=== PATIENT | female | born 1975 | race Caucasian/White ===

== ENCOUNTER 2017-10-21 11:08 | Emergency (ER) | payer MEDICAID, OTHER ==
[~2017-10-21] VITALS: Ht 152.4 cm; Wt 73.9 kg
[~2017-10-21 11:08] MED LIST: MULT-298 PO
[2017-10-21 11:21] VITALS: BP 106/69
[2017-10-21 14:05] VITALS: BP 112/70
== END 2017-10-21 14:05 | disposition home or self-care (01) ==
LOC: MED 11:08
DX: S80.02XA Contusion of left knee, initial encounter (principal); S80.01XA Contusion of right knee, initial encounter; S60.222A Contusion of left hand, initial encounter; S70.11XA Contusion of right thigh, initial encounter; M06.9 Rheumatoid arthritis, unspecified; V49.49XA Driver injured in collision with other motor vehicles in traffic accident, initial encounter; Y93.89 Activity, other specified; Y99.8 Other external cause status; Y92.89 Other specified places as the place of occurrence of the external cause
CPT/HCPCS: 73130; 73562; 81025; 99284